=== PATIENT | female | born 1960 | race Caucasian/White ===

== ENCOUNTER 2021-05-13 14:03 | Emergency (ER) | payer MEDICARE, OTHER ==
[2021-05-13 15:19] LABS: HEMOGLOBIN 13.8 gm/dl (12.3-15.3); RED BLOOD COUNT 4.52 M/UL (4.00-5.10); WHITE BLOOD COUNT 5.6 K/UL (4.5-11.0)
[2021-05-13 15:49] LABS: BUN/CREATININE RATIO 20 (0-10)
[2021-05-13] MEDS ORDERED: LOPRESSOR 25 MG25 MG PO (16:35)
== END 2021-05-13 17:56 | disposition home or self-care (01) ==
LOC: ER1 14:03
PROVIDERS: Preventive Medicine Occupational Medicine
DX: R00.2 Palpitations (principal); I25.10 Atherosclerotic heart disease of native coronary artery without angina pectoris; I48.91 Unspecified atrial fibrillation
CPT/HCPCS: 71045; 80053; 82550; 82553; 83690; 83874; 83880; 84439; 84443; 84484; 85025; 85379; 85610; 85652; 85730; 86140; 93005; 99285